=== PATIENT | female | born 1945 | race Caucasian/White ===

== ENCOUNTER 2017-06-14 08:00 | Outpatient (CLI) | payer MEDICARE, OTHER | END 2017-06-14 08:01 | disposition home or self-care (01) | LOC: BICMAMMO 08:00 | PROVIDERS: ATTEND Internal Medicine | DX: Z12.31 Encounter for screening mammogram for malignant neoplasm of breast (principal) | CPT/HCPCS: 77063; 77067; G0202 ==

== ENCOUNTER 2017-11-17 09:06 | Outpatient (CLI) | payer MEDICARE, OTHER | END 2017-11-17 09:07 | disposition home or self-care (01) | LOC: BICCT 09:06 | PROVIDERS: ATTEND Internal Medicine | DX: A31.2 Disseminated mycobacterium avium-intracellulare complex (DMAC) (principal); G47.33 Obstructive sleep apnea (adult) (pediatric); J47.9 Bronchiectasis, uncomplicated; R91.8 Other nonspecific abnormal finding of lung field | CPT/HCPCS: 71250 ==

== ENCOUNTER 2018-06-17 12:58 | Outpatient (CLI) | payer MEDICARE, OTHER | END 2018-06-17 12:59 | disposition home or self-care (01) | LOC: BICMAMMO 12:58 | PROVIDERS: ATTEND Internal Medicine | DX: Z12.31 Encounter for screening mammogram for malignant neoplasm of breast (principal) | CPT/HCPCS: 77063; 77067 ==

== ENCOUNTER 2018-10-27 10:17 | Outpatient (CLI) | payer MEDICARE, OTHER ==
--- NOTE | 2018-10-27 11:03 | BD ---
DEXA BONE DENSITY EXAM: COMPARISON: 12/18/2010. HISTORY: A 73-year-old postmenopausal female for screening. FINDINGS: Lumbar Spine: BMD (g/cm2) L1 1.008 T-Score: 0.2 L2 1.077 T-Score: 0.4 L3 1.149 T-Score: 0.6 L4 1.148 T-Score: 0.8 L1-L4 1.101 T-Score: 0.5 Femoral Neck: 0.636 T-Score: -1.9 Total Femur: 0.870 T-Score: -0.6 Impression: Osteopenia. This patient has a 10-year WHO fracture risk of a major osteoporotic fracture of 21% and of a hip fracture of 11%. POS: [facility]
== END 2018-10-27 10:18 | disposition home or self-care (01) ==
LOC: BICMAMMO 10:17
PROVIDERS: ATTEND Internal Medicine
DX: Z13.820 Encounter for screening for osteoporosis (principal); M85.859 Other specified disorders of bone density and structure, unspecified thigh; Z78.0 Asymptomatic menopausal state
CPT/HCPCS: 77080

== ENCOUNTER 2018-12-15 09:28 | Outpatient (CLI) | payer MEDICARE, OTHER ==
--- NOTE | 2018-12-15 10:04 | CT ---
NONCONTRAST ENHANCED CT CHEST: HISTORY: Multiple pulmonary nodules. FINDINGS: Noncontrast enhanced CT chest performed. Comparison is made to a previous exam from 08/18/2016. CT chest demonstrates numerous lung parenchymal nodules too numerous and extensive to individually ev aluated. These lesions all appear to be stable. No significant interval enlargement seen. No definite masses are seen which have developed in the interim. No evidence of lymphadenopathy seen. IMPRESSION: Stable numerous lung parenchymal nodules not significantly changed. Transcribed Date/Time: 12/15/2018 11:04 AM
--- NOTE | 2018-12-15 12:48 | HP ---
SERVICE: Pulmonary Medicine. REASON FOR VISIT: Followup CT scan. HISTORY OF PRESENT ILLNESS: The patient is a very pleasant 73-year-old white female with past medical history significant for Mycobacterium avium complex. This was diagnosed back in 2015. She was ultimately discovered to have the Mycobacterium avium complex and underwent a therapy for a period of 15 months. At the end of that, we underwent surveillance. She previously had a fairly severe cough, which went away. The family suggested that her cough is coming back to some extent. We had a repeat CT scan and it looks like many nodular and bronchiectatic lesions were roughly stable (though there was a difference in technique between the CT scans, 2 mm cuts versus 5 mm cuts). But there seemed to be new infiltrate in the right lower lobe, and in the lingula, possibly characteristic of recurrent disease. As such, we are going to proceeding with elective bronchoscopy for surveillance purposes. PAST MEDICAL HISTORY: 1. Hypertension. 2. Dyslipidemia. 3. Hypothyroidism. 4. Osteopenia. 5. Obstructive sleep apnea, mild. 6. History of Mycobacterium avium complex, status post 15 months of triple therapy 1 year ago. PAST SURGICAL HISTORY: 1. Tonsillectomy and adenoidectomy in 1954. 2. Achilles tendon rupture with repair in 1963 with a repeat 1972 on the right. 3. Ectopic with subsequent unilateral salpingectomy on the right, 1968. 4. Tubal ligation on the left in 1981. FAMILY HISTORY: Positive for heart failure, thyroid disease, arthritis, stroke, blood pressure issues, and kidney problems. ALLERGIES: NO KNOWN DRUG ALLERGIES. SOCIAL HISTORY: The patient drinks 2 to 3 times per year. She was a smoker for roughly five years, but this was an insignificant amount. She has no exposure to chemicals, dust, asbestos, or tuberculosis that she is aware of. MEDICATIONS: 1. Atorvastatin. 2. Lisinopril/hydrochlorothiazide. 3. Levothyroxine. 4. Aspirin. 5. Vitamin D. 6. Calcium. 7. Multivitamin. REVIEW OF SYSTEMS: General; head eyes, ears nose, and throat; cardiovascular, respiratory, GI, , musculoskeletal, neurologic, and skin are negative, except as mentioned in the HPI. PHYSICAL EXAMINATION: VITAL SIGNS: Afebrile, pulse 81, respirations 15, and saturation 97% on room air. GENERAL: The patient is awake and alert, in no apparent distress. LUNGS: Excellent air entry with no prolonged expiratory phase, wheezing, crackles, or rhonchi present. HEART: Normal rate and regular. ABDOMEN: Soft, nontender, nondistended. Bowel sounds are positive. MUSCULOSKELETAL: No cyanosis or clubbing. No pitting in the bilateral lower extremities. NEUROLOGIC: Grossly nonfocal. IMAGING STUDIES: CT of the chest today demonstrates fairly stable nodular and bronchiectatic lesions. There are some small cystic lesions that may involve distal airways. In addition to that, she has a very small tree-in-bud infiltrate in the right lower lobe, and increasing dizziness in the lingula. I cannot tell whether this is just simply a difference in technique (2 mm cut versus on current study versus 5 mm cut on comparison study). ASSESSMENT: 1. Obstructive sleep apnea, mild. Under excellent control with CPAP therapy with wonderful compliance. 2. History of Mycobacterium avium complex, status post 15 months of antibiotic therapy, [address] with chronic pulmonary nodules, mild bronchiectasis, small pulmonary cavities (likely representing distal bronchiectatic airways), and new minimal infiltrates, characterized by tree-in-bud changes. DISCUSSION AND PLAN: We are going to move forward with BAL in the right lower lobe and lingula for surveillance purposes. I will have the patient return to clinic in 2 months. At that point, we will be able to review the pathology. We will continue our auto-titrating CPAP machine from 7 to 13 cm of water pressure. Job ID: [id number]
== END 2018-12-15 09:29 | disposition home or self-care (01) ==
LOC: BICCT 09:28
PROVIDERS: ATTEND Internal Medicine Critical Care Medicine
DX: A31.0 Pulmonary mycobacterial infection (principal); R91.8 Other nonspecific abnormal finding of lung field; G47.33 Obstructive sleep apnea (adult) (pediatric)
CPT/HCPCS: 71250

== ENCOUNTER 2018-12-23 08:03 | Day surgery (SDC) | payer MEDICARE, OTHER ==
[2018-12-22 13:12] VITALS: BMI 32.1
[2018-12-23] MEDS ORDERED: Fentanyl 100 MCG/2 ML VIAL ONE (08:57)
[2018-12-23] MEDS ORDERED: Ondansetron PF 4 MG/2 ML Vial ONE (10:01)
[2018-12-23 11:33] LABS: BF Color Colorless; BF RBC Count - Manual 36 /cumm; BF WBC/Nonhematics Ct. - Manua 43 /cumm; Body Fluid Source Bronchioalveol Lavag; Clarity Clear (Clear); Tube # EDTA
[2018-12-23 11:34] LABS: BF Color Colorless; BF RBC Count - Manual 233 /cumm; BF WBC/Nonhematics Ct. - Manua 224 /cumm; Body Fluid Source Bronchioalveol Lavag; Clarity Hazy (Clear); Tube # EDTA
[2018-12-23 11:54] LABS: BF Segmented Neutrophils 30 %; Cell Count Non Hematic 45 %; Eosinophils 3 %; Lymphocytes 22 %
[2018-12-23 12:07] LABS: BF Segmented Neutrophils 25 %; Cell Count Non Hematic 55 %; Eosinophils 4 %; Lymphocytes 16 %
--- NOTE | 2018-12-23 15:31 | OP ---
DATE OF PROCEDURE: 12/23/2018 SERVICE: Pulmonary Medicine. PROCEDURE PERFORMED: Fiberoptic bronchoscopy with: 1. Visual airway inspection. 2. Bronchoalveolar lavage from the right lower lobe and lingula. PREPROCEDURE DIAGNOSIS: Pulmonary infiltrate. POSTPROCEDURE DIAGNOSIS: Pulmonary infiltrate. MEDICATIONS USED: For list of medications use, please refer to Anesthesia documentation. PREANESTHESIA ASSESSMENT: H and P had been performed. The patient's medication and allergies were reviewed. Informed consent was obtained after discussing risks, benefits, and rationale for performing the procedure as well as alternative options. DESCRIPTION OF PROCEDURE: A time-out was performed, identifying the correct procedure and the patient with name and date of . A diagnostic fiberoptic bronchoscope was introduced through the existing endotracheal tube. The bronchoscope was advanced into the trachea, where tracheobronchial tree inspection was carried out with clear identification of the right upper lobe, right middle lobe, right lower lobe, left upper lobe, lingula, and left lower lobe. Anatomy was normal to the segmental level. Bronchoalveolar lavage from the basal lateral segment of the right lower lobe, in the superior segment of the lingula was obtained. The bronchoscope was subsequently removed from the patient. FINDINGS: 1. No endobronchial disease was identified. 2. Secretions were minimal, but hard. SPECIMENS OBTAINED: BAL x2 for pathology and microbiology. COMPLICATIONS: None. ESTIMATED BLOOD LOSS: None FLUOROSCOPY TIME: None. DISPOSITION: The patient will be discharged home when she meets criteria in the postanesthesia care unit. Job ID: [id number]
[2018-12-23] MEDS ORDERED: PROPOFOL 200 MG/20 ML VIAL ONE (16:37)
[2018-12-23] MEDS ORDERED: Succinylcholine Chloride 20 MG/ML 10 ml SYRINGE FS ONE (16:37)
[2018-12-23] MEDS ORDERED: Lidocaine 1% PF 5 ML VIAL ONE (16:37)
[2018-12-27 09:14] LABS: Fungus Stain Final report (.)
== END 2018-12-23 12:55 | disposition home or self-care (01) ==
LOC: SDC 08:03
PROVIDERS: ATTEND Internal Medicine
PROC: 0B9F8ZX Drainage of Right Lower Lung Lobe, Via Natural or Artificial Opening Endoscopic, Diagnostic (ICD-10-PCS; principal; 2018-12-23)
PROC: 0B9H8ZX Drainage of Lung Lingula, Via Natural or Artificial Opening Endoscopic, Diagnostic (ICD-10-PCS; 2018-12-23)
DX: R91.8 Other nonspecific abnormal finding of lung field (principal)
CPT/HCPCS: 85060; 87070; 87102; 87116; 87206; 88112; 88312; 89051; J2405; J3010; J7620

== ENCOUNTER 2019-06-19 13:32 | Outpatient (CLI) | payer MEDICARE, OTHER ==
--- NOTE | 2019-06-19 15:40 | MMO ---
Bilateral MAMMO Bilat Screen [facility]. CLINICAL HISTORY: Patient is 74 years old and is seen for screening. The patient has no family history of breast cancer. The patient has no personal history of cancer. VIEWS: The views performed were: bilateral craniocaudal with tomosynthesis and bilateral mediolateral oblique with tomosynthesis. FILMS COMPARED: The present examination has been compared to prior imaging studies performed at [facility] on 06/14/2017 and 06/17/2018, and at [facility] on 05/03/2015 and 05/21/2016. This study has been interpreted with the assistance of computer-aided detection. MAMMOGRAM FINDINGS: There are scattered fibroglandular densities. There are stable benign appearing calcifications seen in both breasts. There are no suspicious masses, suspicious calcifications, or new areas of architectural distortion. IMPRESSION: THERE IS NO MAMMOGRAPHIC EVIDENCE OF MALIGNANCY. A ROUTINE FOLLOW-UP MAMMOGRAM IN 1 YEAR IS RECOMMENDED. THE RESULTS OF THIS EXAM WERE SENT TO THE PATIENT. ACR BI-RADS Category 2 - Benign finding MAMMOGRAPHY NOTE: 1. A negative mammogram report should not delay a biopsy if a dominant of clinically suspicious mass is present. 2. Approximately 10% to 15% of breast cancers are not detected by mammography. 3. Adenosis and dense breasts may obscure an underlying neoplasm. Reported by: MADELEINE CHOI MD Electonically Signed: [id number]
== END 2019-06-19 13:33 | disposition home or self-care (01) ==
LOC: BICMAMMO 13:32
PROVIDERS: ATTEND Internal Medicine
DX: Z12.31 Encounter for screening mammogram for malignant neoplasm of breast (principal)
CPT/HCPCS: 77063; 77067